=== PATIENT | female | born 1985 | race Caucasian/White ===

== ENCOUNTER 2017-02-01 08:14 | Emergency (ER) | payer OTHER ==
[~2017-02-01] VITALS: Ht 149.9 cm; Wt 95.5 kg
[2017-02-01] MEDS ORDERED: IBUP-2070 PO (08:19)
[2017-02-01] MEDS ORDERED: AMOX125T PO (08:19)
[2017-02-01] MEDS ORDERED: BECL8.7A5 IH (08:19)
[2017-02-01] MEDS ORDERED: IPRATROPIUM BROMIDE 0.5 MG/2.5 ML NEB SOLUTION NEB ONE (10:15)
[2017-02-01] MEDS ORDERED: ALBUTEROL SULFATE 5 MG/ML 20 ML NEB SOLN [BULK] NEB ONE (10:15)
[2017-02-01] MEDS ORDERED: IBUPROFEN 600 MG TABLET PO ONE (10:15)
[2017-02-01 12:28] VITALS: BP 117/62
[2017-02-01] MEDS ORDERED: ALBUTEROL SULFATE HFA 90 MCG/PUFF 8 GM INHALER IH ONE (12:30)
== END 2017-02-01 12:35 | disposition home or self-care (01) ==
LOC: EMS 08:15
DX: J40 Bronchitis, not specified as acute or chronic (principal)
CPT/HCPCS: 71010; 94640; 99283; J7611; J3535

== ENCOUNTER 2017-04-13 12:00 | Emergency (ER) | payer OTHER ==
[~2017-04-13] VITALS: Ht 152.4 cm; Wt 98.2 kg
[~2017-04-13 12:00] MED LIST: AMOX125T PO; BECL8.7A5 IH; IBUP-2070 PO
[2017-04-13 12:45] LABS: GLUCOSE, URINE (UA) NEGATIVE (NEGATIVE); KETONES,URINE NEGATIVE (NEGATIVE); LEUKOCYTE ESTERASE ,URINE SMALL (NEGATIVE); OCCULT BLOOD,URINE NEGATIVE (NEGATIVE); PROTEIN,URINE NEGATIVE (NEGATIVE)
[2017-04-13 12:49] LABS: ADD UA MICROSCOPIC YES; APPEARANCE,URINE HAZY (CLEAR)
[2017-04-13 12:50] LABS: RBC,URINE None Seen /HPF (0-2); SQUAMOUS EPITHELIAL CELL,UR Few /LPF (None Seen); WBC,URINE 0-2 /HPF (0-5)
[2017-04-13 13:11] LABS: BASOPHILS # (AUTO) 0.13 K/uL (0.00-0.20); BASOPHILS % (AUTO) 1.1 % (0.0-2.0); EOSINOPHILS # (AUTO) 0.07 K/uL (0.00-0.70); HEMATOCRIT 38.5 % (36-46); HEMOGLOBIN 12.9 g/dL (12.0-16.0); LYMPHOCYTES # (AUTO) 2.3 K/uL (1.0-4.8); LYMPHOCYTES % (AUTO) 20.6 % (22.0-44.0); MEAN CORPUSCULAR HEMOGLOBIN 29.2 pg (26.0-34.0); MEAN CORPUSCULAR HGB CONC 33.5 G/dL (31.0-37.0); MEAN CORPUSCULAR VOLUME 87 fL (80-100); MONOCYTES # (AUTO) 0.9 K/uL (0.1-1.0); MONOCYTES % (AUTO) 7.7 % (2.0-9.0); NEUTROPHILS # (AUTO) 7.8 K/uL (1.8-7.7); NEUTROPHILS % (AUTO) 69.9 % (40.0-70.0); PLATELET COUNT (AUTO) 298 K/uL (150-450); RED BLOOD CELL COUNT(AUTO) 4.42 MIL/uL (4.00-5.20); RED CELL DISTRIBUTION WIDTH 14.9 % (11.5-14.5); WHITE BLOOD COUNT (AUTO) 11.1 K/uL (4.5-11.0)
[2017-04-13] MEDS ORDERED: ONDANSETRON HCL 4 MG TABLET PO ONE (13:15)
[2017-04-13 15:43] VITALS: BP 128/72
== END 2017-04-13 15:45 | disposition home or self-care (01) ==
LOC: EMS 12:02
DX: O21.0 Mild hyperemesis gravidarum (principal); Z3A.01 Less than 8 weeks gestation of pregnancy; M54.5 Low back pain
CPT/HCPCS: 36415; 76801; 76817; 81001; 84702; 85025; 86901; 99285; Q0162

== ENCOUNTER 2017-04-20 13:12 | Emergency (ER) | payer OTHER ==
[~2017-04-20] VITALS: Ht 157.5 cm; Wt 95.0 kg
[~2017-04-20 13:12] MED LIST changes: -AMOX125T PO; -IBUP-2070 PO
[2017-04-20 18:47] VITALS: BP 157/84
== END 2017-04-20 18:49 | disposition home or self-care (01) ==
LOC: EMS 13:14
DX: O9A.212 Injury, poisoning and certain other consequences of external causes complicating pregnancy, second trimester (principal); O21.0 Mild hyperemesis gravidarum; S33.5XXA Sprain of ligaments of lumbar spine, initial encounter; S23.9XXA Sprain of unspecified parts of thorax, initial encounter; V43.52XA Car driver injured in collision with other type car in traffic accident, initial encounter; Y93.89 Activity, other specified; Y92.89 Other specified places as the place of occurrence of the external cause; Y99.8 Other external cause status
CPT/HCPCS: 99283

== ENCOUNTER 2017-05-06 12:08 | Emergency (ER) | payer OTHER ==
[~2017-05-06] VITALS: Ht 157.5 cm; Wt 122.7 kg
[2017-05-06] MEDS ORDERED: SODIUM CHLORIDE 0.9% 2,000 ML IV ONE (13:00)
[2017-05-06] MEDS ORDERED: ONDANSETRON HCL 4 MG/2 ML VIAL IVP ONE (13:00)
[2017-05-06 13:07] LABS: BASOPHILS % (AUTO) 0.4 % (0.0-2.0); EOSINOPHILS % (AUTO) 1.3 % (1.0-6.0); HEMATOCRIT 38.3 % (36-46); HEMOGLOBIN 13.2 g/dL (12.0-16.0); LYMPHOCYTES # (AUTO) 1.6 K/uL (1.0-4.8); LYMPHOCYTES % (AUTO) 14.9 % (22.0-44.0); MEAN CORPUSCULAR HEMOGLOBIN 29.4 pg (26.0-34.0); MEAN CORPUSCULAR HGB CONC 34.3 G/dL (31.0-37.0); MEAN CORPUSCULAR VOLUME 86 fL (80-100); MONOCYTES # (AUTO) 0.7 K/uL (0.1-1.0); MONOCYTES % (AUTO) 5.9 % (2.0-9.0); NEUTROPHILS # (AUTO) 8.5 K/uL (1.8-7.7); NEUTROPHILS % (AUTO) 77.5 % (40.0-70.0); PLATELET COUNT (AUTO) 306 K/uL (150-450); RED BLOOD CELL COUNT(AUTO) 4.47 MIL/uL (4.00-5.20); RED CELL DISTRIBUTION WIDTH 14.4 % (11.5-14.5)
[2017-05-06 13:19] LABS: ANION GAP 12 mmol/L (8-16); CALCIUM, TOTAL 9.2 mg/dL (8.8-10.5); CARBON DIOXIDE 25 mmol/L (22-29); CHLORIDE 101 mmol/L (98-107); CREATININE 0.53 mg/dL (0.60-1.30); GLOMERULAR FILTR. RATE CALC > 60 mL/min (>60); POTASSIUM 3.8 mmol/L (3.5-5.1); SODIUM SERUM 138 mmol/L (136-145); UREA NITROGEN, BLOOD 5 mg/dL (7-18)
[2017-05-06 15:30] VITALS: BP 99/57
== END 2017-05-06 16:16 | disposition home or self-care (01) ==
LOC: EMS 12:10
DX: O21.0 Mild hyperemesis gravidarum (principal); Z3A.00 Weeks of gestation of pregnancy not specified
CPT/HCPCS: 36415; 80048; 85025; 96361; 96374; 99285; J2405; J7030

== ENCOUNTER 2017-05-14 01:29 | Emergency (ER) | payer OTHER ==
[~2017-05-14] VITALS: Ht 157.5 cm; Wt 98.2 kg
[2017-05-14] MEDS ORDERED: PREN-134 PO (01:42)
[2017-05-14] MEDS ORDERED: ONDA-55 PO (01:42)
[2017-05-14] MEDS ORDERED: ACET-48 PO (01:42)
[2017-05-14 02:58] LABS: APPEARANCE,URINE TURBID (CLEAR); GLUCOSE, URINE (UA) NEGATIVE (NEGATIVE); KETONES,URINE NEGATIVE (NEGATIVE); LEUKOCYTE ESTERASE ,URINE LARGE (NEGATIVE); OCCULT BLOOD,URINE TRACE (NEGATIVE); PROTEIN,URINE NEGATIVE (NEGATIVE)
[2017-05-14 02:59] LABS: ADD UA MICROSCOPIC YES
[2017-05-14 03:14] LABS: SQUAMOUS EPITHELIAL CELL,UR Many /LPF (None Seen)
[2017-05-14] MEDS ORDERED: NITROFURANTOIN/NITROFURAN MAC 100 MG CAPSULE [MACROBID] PO ONE (06:45)
[2017-05-14 07:58] VITALS: BP 110/57
== END 2017-05-14 08:23 | disposition home or self-care (01) ==
LOC: EMS 01:31
DX: O23.41 Unspecified infection of urinary tract in pregnancy, first trimester (principal); O99.211 Obesity complicating pregnancy, first trimester; Z3A.12 12 weeks gestation of pregnancy; Z68.39 Body mass index [BMI] 39.0-39.9, adult
CPT/HCPCS: 87086; 99284

== ENCOUNTER 2017-09-17 21:57 | Observation (INO) | payer OTHER ==
[~2017-09-17] VITALS: Ht 157.5 cm; Wt 104.8 kg
[~2017-09-17 21:57] MED LIST changes: +ACET-48 PO; -BECL8.7A5 IH; +ONDA4TAB9 PO; +PREN-134 PO
[2017-09-17 23:10] VITALS: BP 110/57
[2017-09-17] MEDS ORDERED: RINGERS SOLUTION,LACTATED 1,000 ML IV ONE ×2 (23:15→23:45)
== END 2017-09-18 00:30 | disposition home or self-care (01) ==
LOC: EMS 21:58 → 4S 22:15
PROVIDERS: ADMIT Obstetrics & Gynecology; ATTEND Obstetrics & Gynecology
DX: O26.893 Other specified pregnancy related conditions, third trimester (principal); M25.551 Pain in right hip; M25.552 Pain in left hip; Z3A.31 31 weeks gestation of pregnancy
CPT/HCPCS: 59025; 96360; G0378; J7120

== ENCOUNTER 2017-09-18 00:35 | Emergency (ER) | payer OTHER ==
[~2017-09-18] VITALS: Ht 157.5 cm; Wt 103.0 kg
[~2017-09-18 00:35] MED LIST changes: -ONDA4TAB9 PO
[2017-09-18] MEDS ORDERED: GuaiFENesin/D-METHORPHAN [SUGAR-FREE] 200-20MG/10 ML SYRUP UDCUP PO ONE (01:00)
[2017-09-18] MEDS ORDERED: ACETAMINOPHEN 500 MG TABLET PO ONE (01:00)
[2017-09-18] MEDS ORDERED: KETOROLAC TROMETHAMINE 30 MG/ML VIAL IVP ONE (01:00)
[2017-09-18 01:08] LABS: BASOPHILS % (AUTO) 0.4 % (0.0-2.0); HEMATOCRIT 30.7 % (36-46); HEMOGLOBIN 10.3 g/dL (12.0-16.0); LYMPHOCYTES # (AUTO) 2.6 K/uL (1.0-4.8); LYMPHOCYTES % (AUTO) 22.2 % (22.0-44.0); MEAN CORPUSCULAR HGB CONC 33.7 G/dL (31.0-37.0); MEAN CORPUSCULAR VOLUME 83 fL (80-100); MONOCYTES # (AUTO) 0.9 K/uL (0.1-1.0); NEUTROPHILS # (AUTO) 7.6 K/uL (1.8-7.7); NEUTROPHILS % (AUTO) 64.4 % (40.0-70.0); PLATELET COUNT (AUTO) 263 K/uL (150-450); RED BLOOD CELL COUNT(AUTO) 3.69 MIL/uL (4.00-5.20); RED CELL DISTRIBUTION WIDTH 13.9 % (11.5-14.5); WHITE BLOOD COUNT (AUTO) 11.7 K/uL (4.5-11.0)
[2017-09-18 01:17] LABS: ANION GAP 9 mmol/L (8-16); CALCIUM, TOTAL 8.3 mg/dL (8.8-10.5); CARBON DIOXIDE 23 mmol/L (22-29); CHLORIDE 105 mmol/L (98-107); CREATININE 0.51 mg/dL (0.60-1.30); GLOMERULAR FILTR. RATE CALC > 60 mL/min (>60); POTASSIUM 3.8 mmol/L (3.5-5.1); SODIUM SERUM 137 mmol/L (136-145); UREA NITROGEN, BLOOD 6 mg/dL (7-18)
[2017-09-18 01:23] LABS: ALANINE AMINOTRANSFERASE 14 U/L (12-78); ALBUMIN 2.2 g/dL (3.4-5.0); ASPARTATE AMINOTRANSFERASE 11 U/L (15-37); BILIRUBIN,TOTAL 0.4 mg/dL (0.1-1.0); TOTAL PROTEIN, SERUM 6.1 g/dL (6.4-8.2)
[2017-09-18 02:23] VITALS: BP 100/60
== END 2017-09-18 02:30 | disposition home or self-care (01) ==
LOC: EMS 00:36
DX: O26.893 Other specified pregnancy related conditions, third trimester (principal); M54.5 Low back pain; R11.0 Nausea; Z3A.30 30 weeks gestation of pregnancy
CPT/HCPCS: 36415; 80053; 83690; 85025; 96374; 99284; J1885

== ENCOUNTER 2018-01-07 01:19 | Emergency (ER) | payer OTHER ==
[~2018-01-07] VITALS: Ht 153 cm; Wt 100.0 kg
[2018-01-07] MEDS ORDERED: IPRATROPIUM BROMIDE 0.5 MG/2.5 ML NEB SOLUTION NEB ONE ×2 (01:45→04:45)
[2018-01-07] MEDS ORDERED: ALBUTEROL SULFATE 2.5 MG/0.5 ML NEB SOLUTION NEB ONE (01:45)
[2018-01-07] MEDS ORDERED: DEXAMETHASONE SOD PHOS 4 MG/ML 5 ML VIAL IM ONE (04:45)
[2018-01-07] MEDS ORDERED: ALBUTEROL SULFATE 5 MG/ML 20 ML NEB SOLN [BULK] NEB ONE (04:45)
[2018-01-07] MEDS ORDERED: GuaiFENesin/D-METHORPHAN [SUGAR-FREE] 200-20MG/10 ML SYRUP UDCUP PO ONE (04:45)
[2018-01-07 05:45] VITALS: BP 99/64
== END 2018-01-07 06:18 | disposition home or self-care (01) ==
LOC: EMS 01:20
DX: J20.9 Acute bronchitis, unspecified (principal)
CPT/HCPCS: 71045; 94640; 96372; 99284; J1100; J7611; J7613

== ENCOUNTER 2018-02-01 20:37 | Emergency (ER) | payer OTHER ==
[~2018-02-01] VITALS: Ht 152.4 cm; Wt 100.0 kg
[2018-02-01 21:18] LABS: APPEARANCE,URINE CLEAR (CLEAR); BILIRUBIN,URINE NEGATIVE (NEGATIVE); GLUCOSE, URINE (UA) NEGATIVE (NEGATIVE); KETONES,URINE NEGATIVE (NEGATIVE); LEUKOCYTE ESTERASE ,URINE NEGATIVE (NEGATIVE); NITRATE,URINE NEGATIVE (NEGATIVE); OCCULT BLOOD,URINE NEGATIVE (NEGATIVE); PROTEIN,URINE NEGATIVE (NEGATIVE); UROBILINOGEN,URINE 0.2 mg/dL (<=1.0)
[2018-02-01] MEDS ORDERED: CYCLOBENZAPRINE HCL 10 MG TABLET PO ONE (22:45)
[2018-02-01 23:47] VITALS: BP 124/75
== END 2018-02-01 23:58 | disposition home or self-care (01) ==
LOC: EMS 20:37
DX: S29.012A Strain of muscle and tendon of back wall of thorax, initial encounter (principal); X50.0XXA Overexertion from strenuous movement or load, initial encounter; Y93.89 Activity, other specified; Y92.89 Other specified places as the place of occurrence of the external cause; Y99.8 Other external cause status
CPT/HCPCS: 99284

== ENCOUNTER 2018-06-09 15:59 | Emergency (ER) | payer OTHER ==
[~2018-06-09] VITALS: Ht 149.9 cm; Wt 102.0 kg
[2018-06-09] MEDS ORDERED: SODIUM CHLORIDE 0.9% 1,000 ML IV ONE (17:00)
[2018-06-09] MEDS ORDERED: ONDANSETRON HCL 4 MG/2 ML VIAL IVP ONE (17:00)
[2018-06-09 17:20] LABS: BASOPHILS % (AUTO) 0.6 % (0.0-2.0); EOSINOPHILS % (AUTO) 1.4 % (1.0-6.0); HEMATOCRIT 37.3 % (36-46); HEMOGLOBIN 12.3 g/dL (12.0-16.0); LYMPHOCYTES # (AUTO) 1.7 K/uL (1.0-4.8); LYMPHOCYTES % (AUTO) 18.2 % (22.0-44.0); MEAN CORPUSCULAR HEMOGLOBIN 26.2 pg (26.0-34.0); MEAN CORPUSCULAR HGB CONC 32.9 G/dL (31.0-37.0); MEAN CORPUSCULAR VOLUME 79 fL (80-100); MONOCYTES # (AUTO) 0.5 K/uL (0.1-1.0); MONOCYTES % (AUTO) 5.5 % (2.0-9.0); NEUTROPHILS # (AUTO) 7.1 K/uL (1.8-7.7); NEUTROPHILS % (AUTO) 74.3 % (40.0-70.0); PLATELET COUNT (AUTO) 334 K/uL (150-450); RED CELL DISTRIBUTION WIDTH 15.1 % (11.5-14.5)
[2018-06-09 17:28] LABS: APPEARANCE,URINE CLOUDY (CLEAR); BILIRUBIN,URINE NEGATIVE (NEGATIVE); GLUCOSE, URINE (UA) NEGATIVE (NEGATIVE); KETONES,URINE NEGATIVE (NEGATIVE); LEUKOCYTE ESTERASE ,URINE NEGATIVE (NEGATIVE); NITRATE,URINE NEGATIVE (NEGATIVE); OCCULT BLOOD,URINE NEGATIVE (NEGATIVE); PROTEIN,URINE NEGATIVE (NEGATIVE)
[2018-06-09 17:30] LABS: ANION GAP 10 mmol/L (8-16); CARBON DIOXIDE 24 mmol/L (22-29); CHLORIDE 103 mmol/L (98-107); CREATININE 0.64 mg/dL (0.60-1.30); GLOMERULAR FILTR. RATE CALC > 60 mL/min (>60); GLUCOSE,RANDOM 107 mg/dL (70-110); POTASSIUM 3.8 mmol/L (3.5-5.1); SODIUM SERUM 137 mmol/L (136-145); UREA NITROGEN, BLOOD 9 mg/dL (7-18)
[2018-06-09 17:33] LABS: BACTERIA,URINE Rare /HPF (None Seen); RBC,URINE 0-2 /HPF (0-2); SQUAMOUS EPITHELIAL CELL,UR Moderate /LPF (None Seen); WBC,URINE 0-2 /HPF (0-5)
[2018-06-09 17:38] LABS: ALANINE AMINOTRANSFERASE 34 U/L (12-78); ALBUMIN 3.5 g/dL (3.4-5.0); ALKALINE PHOSPHATASE 90 U/L (46-116); ASPARTATE AMINOTRANSFERASE 26 U/L (15-37); BILIRUBIN,TOTAL 0.8 mg/dL (0.1-1.0); LIPASE 87 U/L (73-393); TOTAL PROTEIN, SERUM 7.8 g/dL (6.4-8.2)
[2018-06-09] MEDS ORDERED: FAMOTIDINE 10 MG/ML 2 ML VIAL IVP ONE (18:00)
[2018-06-09 18:11] VITALS: BP 111/71
== END 2018-06-09 18:12 | disposition home or self-care (01) ==
LOC: EMS 16:00
DX: K52.9 Noninfective gastroenteritis and colitis, unspecified (principal)
CPT/HCPCS: 36415; 80053; 81001; 83690; 84703; 85025; 96361; 96374; 96375; 99284; J2405; J3490; J7030

== ENCOUNTER 2018-11-10 16:26 | Emergency (ER) | payer OTHER ==
[~2018-11-10] VITALS: Ht 162.6 cm; Wt 227.0 kg
[2018-11-10 16:34] VITALS: BP 122/65
== END 2018-11-10 20:46 | disposition left against medical advice (07) ==
LOC: EMS 16:27
DX: R05 Cough (principal); R07.9 Chest pain, unspecified; R51 Headache; Z53.21 Procedure and treatment not carried out due to patient leaving prior to being seen by health care provider
CPT/HCPCS: 93005

== ENCOUNTER 2019-01-07 16:07 | Emergency (ER) | payer OTHER ==
[~2019-01-07] VITALS: Ht 154.9 cm; Wt 104.5 kg
[2019-01-07] MEDS ORDERED: KETOROLAC TROMETHAMINE 60 MG/2 ML VIAL IM ONE (20:00)
[2019-01-07 21:06] VITALS: BP 128/72
== END 2019-01-07 21:06 | disposition home or self-care (01) ==
LOC: EMS 16:08
DX: M54.6 Pain in thoracic spine (principal)
CPT/HCPCS: 81025; 96372; 99283; J1885

== ENCOUNTER 2019-06-01 19:49 | Emergency (ER) | payer OTHER ==
[~2019-06-01] VITALS: Ht 180.3 cm; Wt 99.1 kg
[2019-06-01] MEDS ORDERED: IRON-24 PO (20:23)
[2019-06-01 20:25] VITALS: BP 121/67
[2019-06-01] MEDS ORDERED: HYDROCORTISONE 1% 30 GM CREAM TP ONE (20:45)
[2019-06-01] MEDS ORDERED: DiphenhydrAMINE HCL 25 MG CAPSULE PO ONE (20:45)
== END 2019-06-01 21:05 | disposition home or self-care (01) ==
LOC: EMS 19:50
DX: L25.9 Unspecified contact dermatitis, unspecified cause (principal); Z98.51 Tubal ligation status

== ENCOUNTER 2019-06-18 09:13 | Emergency (ER) | payer OTHER ==
[~2019-06-18] VITALS: Ht 152.4 cm; Wt 99.1 kg
[~2019-06-18 09:13] MED LIST changes: -ACET-48 PO; +IRON-24 PO; -PREN-134 PO
[2019-06-18] MEDS ORDERED: LORA10TA7 PO (09:21)
[2019-06-18] MEDS ORDERED: CYCLOBENZAPRINE HCL 10 MG TABLET PO ONE (09:45)
[2019-06-18] MEDS ORDERED: KETOROLAC TROMETHAMINE 60 MG/2 ML VIAL IM ONE (09:45)
[2019-06-18 11:14] VITALS: BP 116/75
== END 2019-06-18 11:17 | disposition home or self-care (01) ==
LOC: EMS 09:14
DX: S46.812A Strain of other muscles, fascia and tendons at shoulder and upper arm level, left arm, initial encounter (principal); Z98.51 Tubal ligation status; Z79.899 Other long term (current) drug therapy; X50.0XXA Overexertion from strenuous movement or load, initial encounter; Y93.89 Activity, other specified; Y92.89 Other specified places as the place of occurrence of the external cause; Y99.8 Other external cause status
CPT/HCPCS: 73060; 93971; 96372; 99284; J1885

== ENCOUNTER 2019-10-03 06:58 | Emergency (ER) | payer OTHER ==
[~2019-10-03] VITALS: Ht 152.4 cm; Wt 95.5 kg
[~2019-10-03 06:58] MED LIST changes: +LORA10TA7 PO
[2019-10-03] MEDS ORDERED: AMOX TR/POT CLAV 875 MG/125 MG TABLET PO ONE (09:30)
[2019-10-03] MEDS ORDERED: KETOROLAC TROMETHAMINE 30 MG/ML VIAL IM ONE (09:30)
[2019-10-03 09:38] VITALS: BP 132/73
[2019-10-03] MEDS ORDERED: PredniSONE 20 MG TABLET PO ONE (10:00)
[2019-10-03] MEDS ORDERED: ALBUTEROL SULFATE 2.5 MG/0.5 ML NEB SOLUTION NEB ONE (10:00)
[2019-10-03] MEDS ORDERED: IPRATROPIUM BROMIDE 0.5 MG/2.5 ML NEB SOLUTION NEB ONE (10:00)
== END 2019-10-03 10:15 | disposition home or self-care (01) ==
LOC: EMS 07:00
DX: J03.90 Acute tonsillitis, unspecified (principal); H66.91 Otitis media, unspecified, right ear; J45.909 Unspecified asthma, uncomplicated; Z79.899 Other long term (current) drug therapy; Z98.51 Tubal ligation status
CPT/HCPCS: 94640; 96372; 99283; J1885; J7512

== ENCOUNTER 2020-03-22 17:06 | Emergency (ER) | payer OTHER ==
[~2020-03-22] VITALS: Ht 160 cm; Wt 81.8 kg
[2020-03-22] MEDS ORDERED: LIDOCAINE 1% 10 ML VIAL INJ ONE (17:45)
[2020-03-22] MEDS ORDERED: POVIDONE-IODINE 10% 15 ML SOLUTION UD TP ONE (18:00)
[2020-03-22 18:40] VITALS: BP 117/70
== END 2020-03-22 18:50 | disposition home or self-care (01) ==
LOC: EMS 17:06
DX: H60.02 Abscess of left external ear (principal); Z79.899 Other long term (current) drug therapy
CPT/HCPCS: 69000; 99284; J3490

== ENCOUNTER 2020-08-12 19:10 | Emergency (ER) | payer OTHER ==
[~2020-08-12] VITALS: Ht 154.9 cm; Wt 65.2 kg
[2020-08-12] MEDS ORDERED: HYDR30CR77 PR (19:27)
[2020-08-12] MEDS ORDERED: BENZOCAINE 20% 11.9 GM GEL TP ONE (20:30)
[2020-08-12 20:57] VITALS: BP 116/68
== END 2020-08-12 21:47 | disposition home or self-care (01) ==
LOC: EMS 19:14
DX: K64.4 Residual hemorrhoidal skin tags (principal); Z88.6 Allergy status to analgesic agent; Z88.8 Allergy status to other drugs, medicaments and biological substances
CPT/HCPCS: Z7502; Z7610

== ENCOUNTER 2020-12-28 19:52 | Emergency (ER) | payer OTHER ==
[~2020-12-28] VITALS: Ht 154.9 cm; Wt 57.7 kg
[~2020-12-28 19:52] MED LIST changes: +HYDR30CR77 PR
[2020-12-28 20:00] VITALS: BP 107/58
[2020-12-28] MEDS ORDERED: LIDOCAINE 5% TRANSDERMAL PATCH TD ONE (20:30)
[2020-12-28] MEDS ORDERED: CYCLOBENZAPRINE HCL 10 MG TABLET PO ONE (20:30)
[2020-12-28] MEDS ORDERED: ACETAMINOPHEN 500 MG TABLET PO ONE (20:30)
[2020-12-28 20:53] LABS: APPEARANCE,URINE CLEAR (CLEAR); BILIRUBIN,URINE NEGATIVE (NEGATIVE); GLUCOSE, URINE (UA) NEGATIVE (NEGATIVE); KETONES,URINE NEGATIVE (NEGATIVE); LEUKOCYTE ESTERASE ,URINE NEGATIVE (NEGATIVE); NITRATE,URINE NEGATIVE (NEGATIVE); OCCULT BLOOD,URINE NEGATIVE (NEGATIVE); PH,URINE 6.5 (5.0-8.0); PROTEIN,URINE NEGATIVE (NEGATIVE)
== END 2020-12-28 21:09 | disposition home or self-care (01) ==
LOC: EMS 19:52
DX: S29.012A Strain of muscle and tendon of back wall of thorax, initial encounter (principal); Z88.6 Allergy status to analgesic agent; Z88.5 Allergy status to narcotic agent; X58.XXXA Exposure to other specified factors, initial encounter; Y93.89 Activity, other specified; Y92.89 Other specified places as the place of occurrence of the external cause; Y99.8 Other external cause status
CPT/HCPCS: 99284

== ENCOUNTER 2024-06-08 17:32 | Emergency (ER) | payer OTHER ==
[~2024-06-08] VITALS: Ht 154.9 cm; Wt 85.0 kg
[~2024-06-08 17:32] MED LIST changes: +ACET-66 PO; +CYAN250014 PO; +GUAIFDM PO; -HYDR30CR77 PR; -IRON-24 PO; -LORA10TA7 PO
[2024-06-08 17:35] VITALS: TEMP 98.1
[2024-06-08] MEDS ORDERED: FERR325T27 PO (17:38)
[2024-06-08] MEDS ORDERED: MULT-1248 PO (17:38)
[2024-06-08 18:05] LABS: APPEARANCE,URINE CLEAR (CLEAR); BILIRUBIN,URINE NEGATIVE (NEGATIVE); COLOR,URINE COLORLESS (YELLOW); GLUCOSE, URINE (UA) NEGATIVE (NEGATIVE); KETONES,URINE NEGATIVE (NEGATIVE); LEUKOCYTE ESTERASE ,URINE NEGATIVE (NEGATIVE); NITRATE,URINE NEGATIVE (NEGATIVE); OCCULT BLOOD,URINE LARGE (NEGATIVE); PROTEIN,URINE NEGATIVE (NEGATIVE); SPECIFIC GRAVITIY, URINE 1.012 (1.003-1.030); UROBILINOGEN,URINE <=1.0 mg/dL (<=1.0)
[2024-06-08 18:10] LABS: HCG,QUAL URINE NEGATIVE (NEGATIVE)
[2024-06-08 18:18] LABS: BACTERIA,URINE None Seen /HPF (None Seen); WBC,URINE 0-2 /HPF (0-5)
[2024-06-08] MEDS ORDERED: PHEN-846 PO (18:32)
[2024-06-08] MEDS ORDERED: NITR-75 PO (18:32)
[2024-06-08 18:37] VITALS: BP 110/72; PULSE 76; RESP 18; O2SAT 99
== END 2024-06-08 18:46 | disposition home or self-care (01) ==
LOC: EMS 17:32
DX: N39.0 Urinary tract infection, site not specified (principal); Z88.6 Allergy status to analgesic agent; Z88.8 Allergy status to other drugs, medicaments and biological substances
CPT/HCPCS: 81001; 84703; 99283

== ENCOUNTER 2024-09-19 21:00 | Emergency (ER) | payer MEDICAID, OTHER ==
[~2024-09-19] VITALS: Ht 154.9 cm; Wt 84.1 kg
[~2024-09-19 21:00] MED LIST changes: +FERR325T27 PO; -GUAIFDM PO; +MULT-1248 PO; +NITR-75 PO; +PHEN-846 PO
[2024-09-19 21:10] VITALS: TEMP 98.4
[2024-09-19 21:34] LABS: COVID AG,FIA SOURCE NASAL SWAB
[2024-09-19 21:46] LABS: RAPID GROUP A STREP NEGATIVE (NEGATIVE)
[2024-09-19 21:52] LABS: SARS-COV2 (COVID) ANTIGEN,FIA Negative (Negative)
[2024-09-19 21:54] LABS: INFLUENZA TYPE A NEGATIVE FOR TYPE A (NEGATIVE); INFLUENZA TYPE B NEGATIVE FOR TYPE B (NEGATIVE)
[2024-09-19] MEDS: DEXAMETHASONE 4 MG TABLET PO ONE (23:09)
[2024-09-19] MEDS: ACETAMINOPHEN 325 MG TABLET PO ONE (23:11)
[2024-09-19] MEDS: ALBUTEROL SULFATE 2.5 MG/0.5 ML NEB SOLUTION NEB ONE (23:13)
[2024-09-19] MEDS: IPRATROPIUM BROMIDE 0.5 MG/2.5 ML NEB SOLUTION NEB ONE (23:13)
[2024-09-19 23:15] VITALS: PULSE 95; RESP 18; O2SAT 95; O2SAT 97
[2024-09-19 23:16] VITALS: BP 105/55; O2SAT 98
[2024-09-19 23:30] VITALS: PULSE 111; RESP 18; O2SAT 99
== END 2024-09-20 00:14 | disposition home or self-care (01) ==
LOC: EMS 21:00
DX: J06.9 Acute upper respiratory infection, unspecified (principal); B97.89 Other viral agents as the cause of diseases classified elsewhere; Z88.6 Allergy status to analgesic agent; Z98.84 Bariatric surgery status; Z20.822 Contact with and (suspected) exposure to COVID-19
CPT/HCPCS: 99283; 87426; 87430; 87804; 94640; J8540

== ENCOUNTER 2025-03-20 18:41 | Emergency (ER) | payer OTHER ==
[~2025-03-20] VITALS: Ht 154.9 cm; Wt 84.1 kg
[~2025-03-20 18:41] MED LIST changes: +NITR-104 PO; -NITR-75 PO
[2025-03-20 19:18] LABS: COVID AG,FIA SOURCE NASAL SWAB
[2025-03-20 19:39] LABS: INFLUENZA TYPE A NEGATIVE FOR TYPE A (NEGATIVE); INFLUENZA TYPE B NEGATIVE FOR TYPE B (NEGATIVE); SARS-COV2 (COVID) ANTIGEN,FIA Negative (Negative)
[2025-03-20 20:30] VITALS: BP 106/71; PULSE 90; RESP 18; TEMP 97.705256; O2SAT 100
[2025-03-20] MEDS ORDERED: CEPH-558 PO (20:59)
[2025-03-20] MEDS ORDERED: GUAIFDM PO (20:59)
[2025-03-20] MEDS ORDERED: ACET-2080 PO (20:59)
== END 2025-03-20 21:14 | disposition home or self-care (01) ==
LOC: EMS 18:50
DX: J02.9 Acute pharyngitis, unspecified (principal); Z20.822 Contact with and (suspected) exposure to COVID-19; Z98.84 Bariatric surgery status; Z88.6 Allergy status to analgesic agent; Z79.899 Other long term (current) drug therapy
CPT/HCPCS: 87804; 99283